=== PATIENT | female | born 1995 | race Hispanic/Latino ===

== ENCOUNTER 2019-07-26 20:16 | Inpatient (IN) | payer MEDICAID ==
[~2019-07-26] VITALS: Ht 147.3 cm; Wt 74.4 kg
[~2019-07-26 20:16] MED LIST: PREN1TAB80 PO
[2019-07-26 20:49] LABS: APPEARANCE,URINE Clear (CLEAR); BILIRUBIN,URINE Negative (NEGATIVE); COLOR,URINE Yellow (YELLOW); GLUCOSE, URINE (UA) Negative (NEGATIVE); KETONES,URINE Negative (NEGATIVE); LEUKOCYTE ESTERASE ,URINE Negative (NEGATIVE); NITRATE,URINE Negative (NEGATIVE); OCCULT BLOOD,URINE Negative (NEGATIVE); PROTEIN,URINE Negative (NEGATIVE); UROBILINOGEN,URINE 0.2 mg/dL (0.2-1.0)
[2019-07-26] MEDS: LACTATED RINGERS 1000ML 1,000 ML IV PRN (20:53)
[2019-07-26] MEDS ORDERED: MAGNESIUM SULFATE 1,000 ML IV PRN (21:18)
[2019-07-26] MEDS ORDERED: MAGNESIUM 4GM PREMIX 100ML 100 ML IV ONE (21:28)
[2019-07-26] MEDS ORDERED: MAGNESIUM SULFATE 1,000 ML IV ONE (21:28)
[2019-07-26] MEDS ORDERED: AMPICILLIN 2GM+NS 100ML 100 ML IV ONE (21:28)
[2019-07-26] MEDS ORDERED: CELESTONE SOLUSPAN 6 MG/ML 5ML VIAL IM SCH (21:30)
[2019-07-26] MEDS ORDERED: CALCIUM GLUCONATE 1 GM/10 ML VIAL IV PRN (21:30)
[2019-07-26] MEDS ORDERED: MAGNESIUM 4GM PREMIX 100ML 100 ML IV SCH (21:30)
[2019-07-26] MEDS ORDERED: CELESTONE SOLUSPAN 6 MG/ML 5ML VIAL ONE (21:44)
[2019-07-26 21:52] LABS: MEAN CORPUSCULAR HEMOGLOBIN 21.5 pg (27.0-33.0); MEAN CORPUSCULAR VOLUME 71.8 fL (79-99); NUCLEATED RED BLOOD CELLS 0.5 % (0.0-0.19); PLATELET COUNT (AUTO) 300 K/uL (130-400); RED BLOOD CELL COUNT(AUTO) 4.32 MIL/uL (4.00-5.50); RED CELL DISTRIBUTION WIDTH 16.2 % (11.0-15.5); WHITE BLOOD COUNT (AUTO) 12.2 K/uL (4.8-10.8)
[2019-07-26 22:35] LABS: AMPHET/METH SCREEN,URINE NEGATIVE (NEGATIVE); BARBITURATE SCREEN, URINE NEGATIVE (NEGATIVE); BENZODIAZEPINES SCREEN,URINE NEGATIVE (NEGATIVE); CANNABINOID SCREEN,URINE NEGATIVE (NEGATIVE); COCAINE SCREEN,URINE NEGATIVE (NEGATIVE); OPIATE SCREEN,URINE NEGATIVE (NEGATIVE); PHENCYCLIDINE SCREEN,URINE NEGATIVE (NEGATIVE)
[2019-07-26] MEDS ORDERED: MEPERIDINE-PF 50 MG/ML SYG ONE (23:20)
[2019-07-26] MEDS ORDERED: PROMETHAZINE HCL 25 MG/ML 1ML AMPULE IM SCH (23:30)
[2019-07-26] MEDS ORDERED: MEPERIDINE-PF 50 MG/ML SYG IVP ONE (23:30)
[2019-07-27] MEDS: LACTATED RINGERS 1000ML 1,000 ML IV PRN (00:22)
[2019-07-27] MEDS: AMPICILLIN 2GM+NS 100ML 100 ML IV SCH ×4 (03:33→15:24)
[2019-07-27 13:03] LABS: RAPID PLASMA REAGIN NONREACTIVE (NONREACTIVE)
[2019-07-28] MEDS: AMPICILLIN 2GM+NS 100ML 100 ML IV SCH ×4 (03:33→21:32)
[2019-07-28] MEDS ORDERED: MAG HYDROX/AL HYDROX/SIMETH ES 30 ML SUSP UDCUP PO PRN (07:45)
[2019-07-28] MEDS: LACTATED RINGERS 1000ML 1,000 ML IV PRN (20:32)
[2019-07-28] MEDS ORDERED: AMPICILLIN 1GM+NS 50ML 50 ML IV ONE (21:10)
[2019-07-29] MEDS: AMPICILLIN 2GM+NS 100ML 100 ML IV SCH ×2 (03:31→09:16)
[2019-07-29 05:36] VITALS: BP 110/60
[2019-07-29] MEDS ORDERED: MEPERIDINE-PF 50 MG/ML SYG IM PRN (05:45)
[2019-07-29] MEDS ORDERED: PROMETHAZINE HCL 25 MG/ML 1ML AMPULE IM PRN (05:45)
[2019-07-29 10:10] LABS: HEPATITIS Bs ANTIGEN SCREEN P Negative (Negative)
== END 2019-07-29 11:14 | disposition home or self-care (01) | DRG 566 ==
LOC: EDH 20:16 → LDH 20:17 → OBSVTOIN 20:17 → LDH 07-29 02:09
DX: O30.043 Twin pregnancy, dichorionic/diamniotic, third trimester (principal); O60.03 Preterm labor without delivery, third trimester; O32.1XX1 Maternal care for breech presentation, fetus 1; Z3A.33 33 weeks gestation of pregnancy
CPT/HCPCS: 36415; 76810; 80305; 81003; 85027; 86592; 86701; 86850; 86900; 86901; 87340; 87390; A4314; G0378; J0290; J0702; J2175; J3475; J7120

== ENCOUNTER 2019-08-01 03:23 | Inpatient (IN) | payer MEDICAID ==
[~2019-08-01] VITALS: Ht 147.3 cm; Wt 73.9 kg
[2019-08-01] MEDS ORDERED: LACTATED RINGERS 1000ML 1,000 ML IV SCH (03:45)
[2019-08-01] MEDS ORDERED: CEFAZOLIN SODIUM 1 GM VIAL IVP PRN (03:45)
[2019-08-01 03:56] LABS: HEMATOCRIT 28.9 % (36-48); MEAN CORPUSCULAR HEMOGLOBIN 21.1 pg (27.0-33.0); MEAN CORPUSCULAR HGB CONC 30.1 g/dL (32.0-36.0); NUCLEATED RED BLOOD CELLS 0.6 % (0.0-0.19); RED BLOOD CELL COUNT(AUTO) 4.13 MIL/uL (4.00-5.50); RED CELL DISTRIBUTION WIDTH 16.6 % (11.0-15.5)
[2019-08-01] MEDS ORDERED: METOCLOPRAMIDE 10 MG/2 ML VIAL ONE (04:01)
[2019-08-01] MEDS ORDERED: CITRIC ACID/SODIUM CITRATE 30 ML UDCUP ONE (04:01)
[2019-08-01] MEDS ORDERED: CALDOLOR 800MG+NS 250ML 250 ML IV ONE (04:05)
[2019-08-01] MEDS ORDERED: FENTANYL CITRATE PF 50 MCG/1 ML 2ML VIAL ONE (04:10)
[2019-08-01] MEDS ORDERED: DURAMORPH PF1 MG/ML 10ML AMP IV ONE (04:10)
[2019-08-01] MEDS ORDERED: CEFAZOLIN SODIUM 1 GM VIAL IVP ONE (04:11)
[2019-08-01] MEDS ORDERED: TRANEXAMIC ACID 1000MG/10ML ONE (04:14)
[2019-08-01] MEDS ORDERED: PHENYLEPHRINE HCL 10 MG/ML 1ML VIAL IV ONE (04:25)
[2019-08-01] MEDS ORDERED: ONDANSETRON HCL 4 MG/2 ML VIAL ONE (04:33)
[2019-08-01] MEDS ORDERED: TRANEXAMIC ACID 1000MG/10ML IV ONE (04:42)
[2019-08-01] MEDS ORDERED: DEXTROSE 5 %-0.45 % NACL 1,000 ML IV PRN (05:15)
[2019-08-01] MEDS ORDERED: DIPHENHYDRAMINE HCL 25 MG CAPSULE PO PRN (05:15)
[2019-08-01] MEDS ORDERED: SODIUM CHLORIDE 0.9% 10 ML VIAL IVP PRN (05:15)
[2019-08-01] MEDS ORDERED: ACETAMINOPHEN EXTRA STRENGTH 500 MG TABLET PO PRN (05:15)
[2019-08-01] MEDS ORDERED: BISACODYL 10 MG SUPP.RECT RC PRN (05:15)
[2019-08-01] MEDS ORDERED: LANOLIN 30GM OINTMENT TP PRN (05:15)
[2019-08-01] MEDS ORDERED: HYDROCODONE/ACETAMINOPHEN 5/325 MG TAB PO PRN (05:15)
[2019-08-01] MEDS ORDERED: OXYTOCIN-LR 20 UNITS/1000 ML 1,000 ML IV PRN (05:15)
[2019-08-01] MEDS ORDERED: PROMETHAZINE HCL 25 MG/ML 1ML AMPULE IM PRN (05:15)
[2019-08-01] MEDS ORDERED: MEPERIDINE-PF 75 MG/ML SYG IM PRN (05:15)
[2019-08-01 05:17] LABS: AMPHET/METH SCREEN,URINE NEGATIVE (NEGATIVE); BARBITURATE SCREEN, URINE NEGATIVE (NEGATIVE); BENZODIAZEPINES SCREEN,URINE NEGATIVE (NEGATIVE); CANNABINOID SCREEN,URINE NEGATIVE (NEGATIVE); COCAINE SCREEN,URINE NEGATIVE (NEGATIVE); OPIATE SCREEN,URINE NEGATIVE (NEGATIVE); PHENCYCLIDINE SCREEN,URINE NEGATIVE (NEGATIVE)
[2019-08-01] MEDS ORDERED: LORATADINE 10 MG TABLET PO PRN (06:00)
[2019-08-01 06:53] VITALS: BP 135/76
[2019-08-01] MEDS: DOCUSATE SODIUM 100 MG CAP PO SCH ×2 (08:45→20:43)
[2019-08-01] MEDS: SIMETHICONE 80 MG TAB.CHEW PO PRN ×3 (08:45→20:43)
[2019-08-01] MEDS: LIDOCAINE 5% TOPICAL PATCH TP SCH (08:47)
[2019-08-01 11:10] VITALS: BP 146/80
[2019-08-01] MEDS: IBUPROFEN 800 MG TAB PO SCH ×2 (13:15→20:49)
[2019-08-01] MEDS: CALDOLOR 800MG+NS 250ML 250 ML IV SCH ×2 (13:34→20:44)
[2019-08-01 14:12] LABS: RAPID PLASMA REAGIN NONREACTIVE (NONREACTIVE)
[2019-08-01 16:36] VITALS: BP 117/70
[2019-08-01 19:26] VITALS: BP 117/72
--- NOTE | 2019-08-01 21:00 | NUR ---
LIDODERM PATCH REMOVED AT 2100. INCISION CLEAN D/I.
[2019-08-01 23:20] VITALS: BP 135/79
[2019-08-01] MEDS: MEASLES/MUMPS/RUBELLA VACCINE, LIVE 0.5 ML/VIAL SQ SCH (23:43)
--- NOTE | 2019-08-02 | NUR ---
WHITE CATH DC'D , MIKI CARE DONE. PT INST TO CALL FOR ASSIST BEFORE GETTING OUT OF BED, VERBALIZED UNDERSTANDING.
--- NOTE | 2019-08-02 00:10 | NUR ---
PT. OUT OF BED AND UP IN CHAIR BY RACHEL(PCP), WELL TOLERATED.
--- NOTE | 2019-08-02 00:55 | NUR ---
ABDOMINAL BINDER APPLIED; PT TAKEN TO NBN VIA WC TO VISIT [employer]; WELL TOLERATED.
--- NOTE | 2019-08-02 01:40 | NUR ---
PT. RETURNED TO ROOM VIA WC FROM N. UP TO BR AND VOIDED BEFORE GETTING BACK IN BED. DENIED PAIN AND DISCOMFORT.
[2019-08-02 03:30] VITALS: BP 131/62
[2019-08-02] MEDS: ACETAMINOPHEN-CODEINE 300/30MG TAB PO PRN ×2 (04:09→21:10)
[2019-08-02] MEDS: IBUPROFEN 800 MG TAB PO SCH ×3 (05:15→19:08)
[2019-08-02] MEDS: DIPH,PERTUSS(ACELL),TET VAC/PF 0.5 ML VIAL IM SCH ×2 (05:15→05:16)
[2019-08-02] MEDS: MEASLES/MUMPS/RUBELLA VACCINE, LIVE 0.5 ML/VIAL SQ SCH (05:17)
[2019-08-02] MEDS ORDERED: PREN1TAB80 PO (06:48)
[2019-08-02 07:05] LABS: HEMATOCRIT 22.3 % (36-48); MEAN CORPUSCULAR HEMOGLOBIN 21.6 pg (27.0-33.0); MEAN CORPUSCULAR HGB CONC 30.9 g/dL (32.0-36.0); MEAN CORPUSCULAR VOLUME 69.9 fL (79-99); NUCLEATED RED BLOOD CELLS 0.1 % (0.0-0.19); RED BLOOD CELL COUNT(AUTO) 3.19 MIL/uL (4.00-5.50); RED CELL DISTRIBUTION WIDTH 16.6 % (11.0-15.5); WHITE BLOOD COUNT (AUTO) 17.5 K/uL (4.8-10.8)
[2019-08-02 07:15] LABS: HEPATITIS Bs ANTIGEN SCREEN P Negative (Negative)
[2019-08-02 07:32] VITALS: BP 116/84
[2019-08-02] MEDS: SIMETHICONE 80 MG TAB.CHEW PO PRN ×2 (09:37→19:06)
[2019-08-02] MEDS: LIDOCAINE 5% TOPICAL PATCH TP SCH (09:37)
[2019-08-02] MEDS: DOCUSATE SODIUM 100 MG CAP PO SCH ×2 (09:37→21:09)
--- NOTE | 2019-08-02 11:00 | NUR ---
PATIENT UP AMBULATING IN HALLWAY AND DENIES ANY DIZZINESS OR SHORTNESS OF BREATH. TOLERATING ACTIVITY WELL WITHOUT AN PROBLEMS.
[2019-08-02 11:43] VITALS: BP 125/73
--- NOTE | 2019-08-02 13:40 | NUR ---
DR. VIEIRA ROUNDED AND ORDER GIVEN TO TYPE AND SCREEN FOR 2 UNITS OF PRBC AND TRANSFUSE. H/H TO BE ORDERED FOR 0700 IN A.M. ORDERS PLACED AND WAS MADE AWARE OF ONLY ONE UNIT COULD BE ORDERED AT A TIME.
[2019-08-02 16:21] VITALS: BP 124/71
--- NOTE | 2019-08-02 19:00 | NUR ---
SECOND UNIT OF PRBC STARTED AND PATIENT TOLERATED TRANSFUSION WELL FOR FIRST 20 MINUTES. PATIENT STATES STILL FEELING WELL AND WAS MEDICATED WITH MOTRIN FOR BURNING PAIN TO LEFT SITE OF INCISION OF 3.
--- NOTE | 2019-08-02 19:15 | NUR ---
received report from Ekaterina Tsai RN. Pt. is having a blood transfusion at this time, second unit. No family member present at bedside. No blood transfusion reaction noted.
--- NOTE | 2019-08-02 19:15 | NUR ---
REPORT GIVEN TO TREVOR, RN AND PATIENT CARE TRANSFERED AT TIS TIME.
[2019-08-02 20:00] VITALS: BP 117/70
--- NOTE | 2019-08-02 21:40 | NUR ---
assisted the pt. to go up to the bathroom and she voided clear yellow urine. Scant lochia rubra noted. Sonja care done by pt. Sonja pad applied. Pt. is comfortable at this time.
[2019-08-02 21:55] VITALS: BP 132/74
--- NOTE | 2019-08-02 21:55 | NUR ---
second unit of blood transfusion done and no untoward reactions. Vital signs taken and recorded.
--- NOTE | 2019-08-02 22:00 | NUR ---
volume of air inhaled using incentive spirometer is [id number] cc. Pt. tolerated the use of the IS well.
--- NOTE | 2019-08-02 22:00 | NUR ---
IV of Normal Saline discontinued at this time and site is flushed also with normal saline solution and clamped. Pt. tolerated the procedure well. Iv is saline locked at this time.
--- NOTE | 2019-08-02 22:10 | NUR ---
abdominal binder applied with the help of Sara Sanchez; ORDER CHECKER.
[2019-08-03] VITALS: BP 131/72
--- NOTE | 2019-08-03 | NUR ---
pt. denies pain at this time.
--- NOTE | 2019-08-03 03:00 | NUR ---
pt. sleeping without distress.
[2019-08-03 04:00] VITALS: BP 125/78
[2019-08-03] MEDS: IBUPROFEN 800 MG TAB PO SCH (04:59)
--- NOTE | 2019-08-03 05:00 | NUR ---
Motrin 800 mg. one tablet given PO. Pt. tolerated the intake of the pill well.
--- NOTE | 2019-08-03 05:05 | NUR ---
assisted the pt in getting up from bed. Walking to the bathroom and voided. No blood on the moise pad noted. Moise care done. Clean/new moise pad applied.
--- NOTE | 2019-08-03 05:15 | NUR ---
pt. back to bed and abdominal binder placed with the help of Sona Choi RN. Pt. tolerated well.
[2019-08-03 07:00] LABS: HEMATOCRIT 27.2 % (36-48)
--- NOTE | 2019-08-03 08:50 | NUR ---
iv to L hand secured. pt to shower. voices no concerns.
--- NOTE | 2019-08-03 10:00 | NUR ---
DR VIEIRA AT BEDSIDE. POC DISCUSSED. VERBALIZES UNDERSTANDING AND AGREEMENT.
--- NOTE | 2019-08-03 10:45 | NUR ---
PT GIVEN DISCHARGE INSTRUCTIONS. QUESTIONS ANSWERED. RX GIVEN. IV TO R HAND D/C'D NO REDNESS NO PAIN TO SITE.
--- NOTE | 2019-08-03 11:00 | NUR ---
pt ambulating to nursery. steady gait.
--- NOTE | 2019-08-03 12:25 | NUR ---
pt to private car via . escorted out by barb. family waiting.
== END 2019-08-03 12:36 | disposition home or self-care (01) | DRG 540 ==
LOC: EDH 03:23 → LDH 03:24 → OBSVTOIN 03:24 → WSH 06:46
PROC: 3E0234Z Introduction of Serum, Toxoid and Vaccine into Muscle, Percutaneous Approach (ICD-10-PCS; 2019-08-01)
PROC: 30233N1 Transfusion of Nonautologous Red Blood Cells into Peripheral Vein, Percutaneous Approach (ICD-10-PCS; 2019-08-01)
PROC: 10D00Z1 Extraction of Products of Conception, Low, Open Approach (ICD-10-PCS; principal; 2019-08-01 04:00)
DX: O60.14X0 Preterm labor third trimester with preterm delivery third trimester, not applicable or unspecified (principal); D62 Acute posthemorrhagic anemia; O30.043 Twin pregnancy, dichorionic/diamniotic, third trimester; Z37.2 Twins, both liveborn; O32.1XX1 Maternal care for breech presentation, fetus 1; O99.02 Anemia complicating childbirth; O32.1XX2 Maternal care for breech presentation, fetus 2; O62.2 Other uterine inertia; Z23 Encounter for immunization
CPT/HCPCS: 36415; 59510; 76810; 80305; 85014; 85018; 85027; 86592; 86701; 86850; 86900; 86901; 86922; 87340; 87390; 88307; A4344; G0378; J0690; J1741; J2274; J2370; J2405; J2590; J2765; J3010; J3490; J7120; P9016

== ENCOUNTER → 2020-01-06 | Outpatient (CLI) | payer MEDICAID | LOC: EDSTATUS 11:00 → DAH 11:43 | PROVIDERS: ATTEND Obstetrics & Gynecology | DX: Z01.818 Encounter for other preprocedural examination (principal); Z30.2 Encounter for sterilization; Z20.828 Contact with and (suspected) exposure to other viral communicable diseases | CPT/HCPCS: 36415; C9803; U0003 ==

== ENCOUNTER 2020-08-17 19:10 | Emergency (ER) | payer MEDICAID ==
[~2020-08-17] VITALS: Ht 147.3 cm; Wt 55.8 kg
[2020-08-17 19:28] VITALS: BP 107/56
[2020-08-17] MEDS ORDERED: IPRATROPIUM/ALBUTEROL SULFATE 3 ML SOLUTION IH ONE (19:30)
[2020-08-17] MEDS ORDERED: FAMOTIDINE 20MG TAB PO ONE (19:30)
[2020-08-17] MEDS ORDERED: SOLU-MEDROL 125MG VIAL IM ONE (19:30)
[2020-08-17 20:40] VITALS: BP 110/74
== END 2020-08-17 20:41 | disposition home or self-care (01) ==
LOC: EDH 19:10
DX: T78.49XA Other allergy, initial encounter (principal); T50.995A Adverse effect of other drugs, medicaments and biological substances, initial encounter; R06.02 Shortness of breath; R11.10 Vomiting, unspecified; K02.9 Dental caries, unspecified; Y92.89 Other specified places as the place of occurrence of the external cause; Z79.899 Other long term (current) drug therapy
CPT/HCPCS: 94640; 96372; 99283; J2930